=== PATIENT | female | born 1975 | race Caucasian/White ===

== ENCOUNTER → 2016-04-29 | Outpatient (CLI) | payer BC ==
[~2016-04-29] MED LIST: GLC500 PO; LVTUNK
--- NOTE | 2016-04-29 14:08 | MAMMOGRAPHY REPORT ---
BILATERAL DIGITAL SCREENING MAMMOGRAM TOMOSYNTHESIS WITH CAD: 04/29/2016 CLINICAL HISTORY: Routine screening. Patient has no complaints. TECHNIQUE: Breast tomosynthesis in addition to standard 2D mammography was performed. Current study was also evaluated with a Computer Aided Detection (CAD) system. COMPARISON: Comparison is made to exams dated: 04/27/2015 mammogram, 04/22/2014 mammogram, 02/18/2013 mammogram, and 01/04/2011 mammogram - [facility]. BREAST COMPOSITION: There are scattered areas of fibroglandular density in both breasts. FINDINGS: No suspicious masses, calcifications, or areas of architectural distortion are noted in e ither breast. There has been no significant interval change compared to prior exams. A coarse benig n rim calcification is seen within the right upper inner quadrant. IMPRESSION: ACR BI-RADS CATEGORY 2: BENIGN There is no mammographic evidence of malignancy. A 1 year screening mammogram is recommended. The p atient will receive written notification of the results. Approximately 10% of breast cancers are not detected with mammography. A negative mammographic repor t should not delay biopsy if a clinically suggestive mass is present. Marzena Vicente M.D. /:04/29/2016 09:13:06 Emissions Testing And Repair Technician: Jasmyne BURR(Erin)(Tre), [facility] letter sent: Normal 1/2 BI-RADS Code: ACR BI-RADS Category 2: Benign
== END | disposition home or self-care (01) ==
LOC: C.MAMM 08:08
PROVIDERS: ATTEND Family Medicine
DX: Z12.31 Encounter for screening mammogram for malignant neoplasm of breast (principal)

== ENCOUNTER → 2017-05-02 | Outpatient (CLI) | payer OTHER ==
--- NOTE | 2017-05-02 15:24 | MAMMOGRAPHY REPORT ---
BILATERAL DIGITAL SCREENING MAMMOGRAM TOMOSYNTHESIS WITH CAD: 05/02/2017 CLINICAL HISTORY: Routine screening. Patient has no complaints. TECHNIQUE: Breast tomosynthesis in addition to standard 2D mammography was performed. Current study was also evaluated with a Computer Aided Detection (CAD) system. COMPARISON: Comparison is made to exams dated: 04/29/2016 mammogram, 04/27/2015 mammogram, 04/22/2014 m ammogram, 02/18/2013 mammogram, and 01/04/2011 mammogram - [facility]. BREAST COMPOSITION: There are scattered areas of fibroglandular density in both breasts. FINDINGS: There is a benign rim calcification in the upper inner right breast. No suspicious mass, a rchitectural distortion or cluster of microcalcifications is seen. IMPRESSION: ACR BI-RADS CATEGORY 1: NEGATIVE There is no mammographic evidence of malignancy. A 1 year screening mammogram is recommended. The pa tient will receive written notification of the results. Approximately 10% of breast cancers are not detected with mammography. A negative mammographic report should not delay biopsy if a clinically suggestive mass is present. Caitie Saravia M.D. ay/:05/02/2017 09:07:12 Weights And Measures Inspector: Sally BURR(Erin)(M), [facility] letter sent: Normal 1/2 BI-RADS Code: ACR BI-RADS Category 1: Negative
== END | disposition home or self-care (01) ==
LOC: C.MAMM 08:11
PROVIDERS: ATTEND Family Medicine
DX: Z12.31 Encounter for screening mammogram for malignant neoplasm of breast (principal)

== ENCOUNTER 2023-08-20 18:47 | Observation (INO) ==
--- NOTE | 2023-08-20 19:30 | Emergency Department Note ---
Impression & Plan Pneumonia, Infection due to human metapneumovirus (hMPV), Rhinovirus infection, Fever, S/P appendectomy ED Provider Note NAME: CARMELO RAO AGE: 47 SEX: F : 1975 ARRIVES VIA: Walk-In INFORMANT: [Patient] ED PROVIDER(S): [Chas Hollingsworth MD] CHIEF COMPLAINT: Fever HISTORY OF PRESENT ILLNESS: The patient is a 47-year-old female who states that she had her appendix taken out outpatient on , 3 days ago. The patient had a fever the following day and this has persisted. Tonight, the temperature was 103. The patient did take some Motrin before arrival and her fever seems to be breaking. Patient has noticed some coughing, shortness of breath and wheezing. She has some minimal abdominal pain but she was told to expect this with the surgery. Her incisions seem to be healing well. No urinary complaints. She has not had any sick contacts. The patient states that she has not really moved her bowels since the surgery. She finally took some stool softeners today. The patient spoke with the on-call surgical service, she was referred to the ER. PMHx/PSHx/Social Hx: See Below PHYSICAL EXAM: GENERAL: Patient is in no acute distress. Face is flushed. HEENT: No acute trauma, normocephalic atraumatic, mucous membranes moist, no nasal congestion. NECK: No stridor, no adenopathy, no meningismus, trachea is midline. LUNGS: Wheezing bilaterally, few scattered crackles are heard. No respiratory distress. Dry cough noted. HEART: Without murmurs gallops or rubs, regular rate and rhythm. ABDOMEN: Soft, mildly tender in the area of her incisions, the incisions do not show erythema that would suggest infection. There is no peritonitis EXTREMITIES: No cyanosis, full range of motion of all the joints without pain or difficulty. NEUROLOGIC: Oriented x 3, no acute motor or sensory deficits, no focal weakness. SKIN: No jaundice, mild diaphoresis. DIFFERENTIAL DIAGNOSIS: Pneumonia, bronchitis, viral illness, aspiration, abscess, UTI, sepsis or bacteremia, among others. EMERGENCY DEPARTMENT PROCEDURES: MEDICAL DECISION MAKING: There is no leukocytosis or concerning anemia. There is a normal platelet count. No renal failure or significant electrolyte abnormality. Lactic acid level is not elevated making severe sepsis less likely. There is no concerning liver enzyme elevation. ECG shows a sinus rhythm, no ischemia. Cardiac enzyme testing x 1 is not consistent with acute cardiac injury. Respiratory bio fire shows human metapneumovirus as well as rhinovirus. Chest x-ray shows a infiltrate on the left. On exam, the patient was wheezing bilaterally with some scattered crackles. She was sweating as her fever appeared to be breaking. Oxygen saturation was low but she was not technically hypoxic. The patient was given IV saline, 500 cc. She was given IV cefepime as antibiotic coverage. She was given oral Tylenol and albuterol via MDI. I did call and speak with general surgery. A CT of the abdomen and pelvis was recommended, this was ordered and the results are pending. The patient's fever is likely from her viral infections coupled with what appears to be a left-sided pneumonia. Given the recent appendectomy, given her complaints and findings, I do think a hospital stay would be warranted. Certainly, given her recent appendectomy, aspiration is a consideration. I spoke with the patient and case management, the on-call hospitalist was consulted. Prior/Outside records/notes reviewed: Surgical note from 08/17/2023 discussing her outpatient appendectomy. ECG per my interpretation: Indication was shortness of breath. The ECG shows a normal sinus rhythm with a rate of 93. There is no acute ST elevation, no PVCs. The QTc is 412. Continuous Cardiac Monitoring per my interpretation: An order was placed for continuous cardiac monitoring. The monitor shows a rate of 96 with normal sinus rhythm. Imaging/x-ray results per my interpretation: Chest x-ray appears to show a mid lung infiltrate. No pneumothorax. Chronic Medical/Social conditions affecting care: Status post appendectomy 3 days ago. Care/Management discussed with: General surgery-Dr. Maynard. Case management, the on-call hospitalist. Level of care consideration(s): After review of the information above and other included data: --I believe the patient requires escalation of care to admission DISPOSITION: Admission with surgical consult Past Med/Surg History Problem List (Updated 08/20/23 @ 22:45 by Chas Hollingsworth MD) S/P appendectomy (Acute) Fever (Acute) Rhinovirus infection (Acute) Infection due to human metapneumovirus (hMPV) (Acute) Pneumonia (Acute) Mucocele of appendix History of back problems Arthritis Abnormal colonoscopy History of colon polyps Colon cancer screening Encounter for pre-operative examination Cardiomegaly (Acute) Dysmetabolic syndrome X (Acute) Fibrocystic breast disease (Acute) Overweight (Acute) Medical History Cardiomegaly Noted on imaging/CXR, Echo done 2019 had cardiomegaly listed as indication History of COVID-19 09/2021: moderate symptoms, resolved Heart murmur Echo 2019: No significant valvular pathology Prediabetes Hypothyroidism History of nephrolithiasis PCOS (polycystic ovarian syndrome) Surgical History (Updated 08/20/23 @ 22:45 by Chas Hollingsworth MD) History of laparoscopic appendectomy (08/17/23) Laparoscopic Appendectomy(Not Applicable) ; partial cecectomy- Akhil Salazar, Family history of reaction to anesthesia Mother: remote hx 47 years ago of awareness during c/s per patient Hx of colonoscopy 2022, 2023 History of urologic surgery Ureteral stent History of lithotripsy History of cervical corpectomy 08/2022 ([facility]) H/O thyroidectomy Family History Mother Diabetes Anemia Chronic kidney disease Breast cancer Hypertension Family history of colonic polyps Father Diabetes Stroke Grandfather Myocardial infarction Brother Renal cell carcinoma Denies family history of Ovarian cancer Prostate cancer Colorectal cancer Social History Smoking Status: Never smoker Second Hand Exposure: No; Do You Dip or Chew Tobacco: No; Hx Alcohol Use: Yes Alcohol type: beer, wine and hard liquor Alcohol Intake Frequency: 2-4 x/Month Hx Substance Use: No Preferred Language: [place] Communication Ability: Effective Visual Impairment: No Limitations Hearing Ability: Normal Radiology Interventional Physician Required: No Beliefs That Will Affect Care: None marital status: Current Living Situation: Spouse current occupational status: employed and unemployed 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 Children do You have: 0 Feels Safe at Home: Yes Childhood Exposure to Second-Hand Smoke: Yes Diet: regular caffeine: Yes during the past year weight has: increased > 10 lbs Dental Care, Regularly: Yes Physical Activity Frequency: Daily Seatbelt Use: always Sunscreen Use: Yes Assistive Devices: Glasses Allergies Allergies Allergy/AdvReac Type Severity Reaction Status Date / Time No Known Allergies Allergy Mild Verified 08/20/23 20:12 Home Meds Home Medications Medication Instructions Recorded Confirmed naproxen sodium 220 mg tablet 220 - 440 mg PO UD PRN Pain 06/04/18 08/20/23 (Aleve) multivitamin (Daily Multi-Vitamin 1 tab PO QAM 06/08/20 08/20/23 tablet) cholecalciferol (vitamin D3) 50 50 mcg PO QAM 05/04/23 08/20/23 mcg (2,000 unit) tablet (Vitamin D3) Previous Rx's Medication Instructions Recorded metformin 1,000 mg tablet 1,000 mg PO QAM #90 tabs 12/27/22 levothyroxine 150 mcg tablet 150 mcg PO QAM #90 tabs 06/28/23 (Synthroid) Results & Data (ED) Vital Signs Vital Signs - 24 hr 08/20/23 18:50 08/20/23 19:03 08/20/23 21:23 Temperature 36.9 C Temperature Source Temporal Artery Scan Pulse Rate 101 H 96 H Pulse Rate [Apical] 80 Pulse Rhythm Pulse Rhythm [Apical] Regular Pulse Strength [Apical] Normal Respiratory Rate 20 18 Respiratory Effort / Characteristics Non-Labored Non-Labored Spontaneous Respiratory Depth Normal Normal Respiratory Pattern Regular Blood Pressure 161/83 H Blood Pressure [Right Arm] 115/70 Blood Pressure Mean 109 Blood Pressure Mean [Right Arm] 85 Pulse Oximetry 92 94 Oxygen Delivery Method Room Air Room Air Sepsis Recent Fever Within 48 Hours No Sepsis New/Unexplained Change in Mental Status No Sepsis Action Taken by Nursing No Action Required 08/20/23 21:23 Temperature Temperature Source Pulse Rate 80 Pulse Rate [Apical] Pulse Rhythm Regular Pulse Rhythm [Apical] Pulse Strength [Apical] Respiratory Rate 18 Respiratory Effort / Characteristics Respiratory Depth Respiratory Pattern Blood Pressure Blood Pressure [Right Arm] Blood Pressure Mean Blood Pressure Mean [Right Arm] Pulse Oximetry 94 Oxygen Delivery Method Room Air Sepsis Recent Fever Within 48 Hours Sepsis New/Unexplained Change in Mental Status Sepsis Action Taken by Usp Medications Current Medication List: was personally reviewed by me Laboratory Data Attestation: I reviewed the patient's lab results. 08/20/23 19:50 08/20/23 19:50 Lab Results 08/20/23 08/20/23 08/20/23 Range/Units 19:02 19:50 20:11 WBC 6.01 (4.8-10.8) K/ul RBC 4.32 (4.20-5.40) M/uL Hgb 13.2 (12.0-16.0) g/dl Hct 39.4 (37.0-47.0) % MCV 91.2 (80.0-100.0) fL MCH 30.6 (25.0-34.0) pg MCHC 33.5 (32.0-36.0) g/dL RDW Std Deviation 47.1 H (36.4-46.3) fL RDW Coeff of Colten 14.1 (11.5-14.5) % Plt Count 273 (130-400) K/uL MPV 10.3 (9.4-12.4) fL Immature Gran % (Auto) 0.3 % Neut % (Auto) 71.1 % Lymph % (Auto) 17.6 % Cameron % (Auto) 9.3 % Eos % (Auto) 1.0 % Baso % (Auto) 0.7 % Neut # (Auto) 4.27 (1.40-6.50) K/uL Lymph # (Auto) 1.06 L (1.20-3.40) K/uL Cameron # (Auto) 0.56 (0.11-0.59) K/uL Eos # (Auto) 0.06 (0.00-0.50) K/uL Baso # (Auto) 0.04 (0.00-0.20) K/uL Immature Gran # (Auto) 0.02 (0.01-0.20) K/uL Sodium 136 (136-145) mmol/L Potassium 3.8 (3.5-5.1) mmol/L Chloride 102 (98-107) mmol/L Carbon Dioxide 28 (21-32) mmol/L Anion Gap 6 (3-11) BUN 11 (6-23) mg/dl Creatinine 0.79 (0.6-1.2) mg/dl Est Cr Clr Drug Dosing 112.3 ml/min Est GFR ( Amer) 103.3 ml/min Est GFR (Non-Af Amer) 89.1 ml/min BUN/Creatinine Ratio 13.9 (10-20) Glucose 126 H (70-99(Fasting)) mg/dl Lactate 1.1 (0.4-2.0) mmol/L Calcium 8.8 (8.6-10.3) mg/dl Total Bilirubin 0.4 (0.2-1.0) mg/dl AST 17 (13-39) U/L ALT 11 (7-52) U/L Alkaline Phosphatase 49 (34-104) U/L Troponin I High Sens 5.7 (0-14) pg/ml Total Protein 7.2 (6.0-8.3) gm/dl Albumin 4.0 (3.4-5.0) gm/dl Globulin 3.2 (2.5-4.0) gm/dl Albumin/Globulin Ratio 1.3 (0.9-2) Adenovirus (PCR) Not Detected (NotDetected) B. pertussis DNA (PCR) Not Detected (NotDetected) B.parapertussis DNA PCR Not Detected (NotDetected) C. pneumoniae DNA (PCR) Not Detected (NotDetected) Coronavirus OC43 (PCR) Not Detected (NotDetected) Coronavirus HKU1 (PCR) Not Detected (NotDetected) Coronavirus 229E (PCR) Not Detected (NotDetected) SARS-CoV-2 (PCR) Not Detected (NotDetected) Coronavirus NL63 (PCR) Not Detected (NotDetected) Human Metapneumovir PCR DETECTED A (NotDetected) Influenza Type A (PCR) Not Detected (NotDetected) Influenza Type B (PCR) Not Detected (NotDetected) M. pneumoniae (PCR) Not Detected (NotDetected) Parainfluenza 1 (PCR) Not Detected (NotDetected) Parainfluenza 2 (PCR) Not Detected (NotDetected) Parainfluenza 3 (PCR) Not Detected (NotDetected) Parainfluenza 4 (PCR) Not Detected (NotDetected) RSV (PCR) Not Detected (NotDetected) Entero/Rhino (PCR) DETECTED A (NotDetected) Administered Medications Discontinued Medications Acetaminophen (Acetaminophen 500 Mg Tab) 1,000 mg PO NOW STA Stop: 08/20/23 19:15 Last Admin: 08/20/23 19:55 Dose: 1,000 mg Documented By: SNS Albuterol (Albut/Ipratrop 3mg/0.5mg Neb 3 Ml Vial) 3 ml NEB NOW STA; Protocol Stop: 08/20/23 19:15 Last Admin: 08/20/23 19:56 Dose: 3 ml Documented By: LARISSA Sodium Chloride (Nss) 500 mls @ 999 mls/hr IV .Q31M DALTON Stop: 08/20/23 19:30 Last Infusion: 08/20/23 20:30 Dose: Infused Documented By: Admin: 08/20/23 19:57 Dose: 999 mls/hr Documented By: LARISSA Sodium Chloride (Nss) 500 mls @ 999 mls/hr IV .Q31M ONE Stop: 08/20/23 19:44 Last Admin: 08/20/23 20:31 Dose: Not Given Documented By: LARISSA Cefepime HCl (Maxipime) 2,000 mg in 20 mls @ 5 mls/min IV NOW STA; Protocol Stop: 08/20/23 19:26 Last Admin: 08/20/23 19:56 Dose: 5 mls/min Documented By: LARISSA Ioversol (Optiray 320 100ml) 94 ml IV ONCE ONE Stop: 08/20/23 21:03 Last Admin: 08/20/23 21:02 Dose: 94 ml Documented By: EDK Discharge Plan Visit Data Chief Complaint: Fever Stated Complaint: POST OP APPENDECTOMY, FEVER, SOB, COUGH ED Provider: Chas Hollingsworth Discharge Problem: Pneumonia, Infection due to human metapneumovirus (hMPV), Rhinovirus infection, Fever, S/P appendectomy Patient Disposition: Admitted As Inpatient Condition: Fair Forms Stand Alone Forms: [facility] Prescriptions Prescriptions: No Action metformin 1,000 mg tablet 1,000 mg PO QAM Qty: 90 3RF levothyroxine [Synthroid] 150 mcg tablet 150 mcg PO QAM Qty: 90 1RF multivitamin [Daily Multi-Vitamin] Tablet 1 tab PO QAM naproxen sodium [Aleve] 220 mg Tablet 220 - 440 mg PO UD PRN (Reason: Pain) cholecalciferol (vitamin D3) [Vitamin D3] 50 mcg (2,000 unit) Tablet 50 mcg PO QAM Referrals Referrals: Alicia Rincon MD [Primary Care Provider] - Discharge Problem: Pneumonia Qualifiers: Pneumonia type: due to unspecified organism Laterality: left Lung location: u nspecified part of lung Qualified Code(s): J18.9 - Pneumonia, unspecified organism Fever Qualifiers: Fever type: unspecified Qualified Code(s): R50.9 - Fever, unspecified
[2023-08-20] MEDS: ACETAMINOPHEN 500 MG TAB PO STA (19:55)
[2023-08-20] MEDS: ALBUT/IPRATROP 3MG/0.5MG NEB 3 ML VIAL NEB STA (19:56)
[2023-08-20] MEDS: CEFEPIME 2,000 MG/20 ML VIAL IV STA (19:56)
[2023-08-20] MEDS: SODIUM CHLORIDE 0.9% 500 ML IV SCH (19:57)
[2023-08-20 20:03] LABS: Adenovirus PCR Not Detected (NotDetected); Bordetella parapertussis PCR Not Detected (NotDetected); Bordetella pertussis PCR Not Detected (NotDetected); Chlamydia pneumoniae PCR Not Detected (NotDetected); Coronavirus 229E PCR Not Detected (NotDetected); Coronavirus CoV-2 (COVID19)PCR Not Detected (NotDetected); Coronavirus HKU1 PCR Not Detected (NotDetected); Coronavirus NL63 PCR Not Detected (NotDetected); Coronavirus OC43PCR Not Detected (NotDetected); Human Metapneumovirus PCR DETECTED (NotDetected); Influenza A PCR Not Detected (NotDetected); Influenza B PCR Not Detected (NotDetected); Mycoplasma pneumoniae PCR Not Detected (NotDetected); Parainfluenza Virus 1 PCR Not Detected (NotDetected); Parainfluenza Virus 2 PCR Not Detected (NotDetected); Parainfluenza Virus 3 PCR Not Detected (NotDetected); Parainfluenza Virus 4 PCR Not Detected (NotDetected); Respiratory Syncytial VirusPCR Not Detected (NotDetected); Rhinovirus/Enterovirus PCR DETECTED (NotDetected)
[2023-08-20 20:12] LABS: Basophils # (auto) 0.04 K/uL (0.00-0.20); Basophils % (auto) 0.7 %; Eosinophils # (auto) 0.06 K/uL (0.00-0.50); Hematocrit (blood only) 39.4 % (37.0-47.0); Hemoglobin 13.2 g/dl (12.0-16.0); Immature Granulocytes # (auto) 0.02 K/uL (0.01-0.20); Immature Granulocytes % (auto) 0.3 %; Lymphocytes # (auto) 1.06 K/uL (1.20-3.40); Lymphocytes % (auto) 17.6 %; Mean Corpuscular Hemoglobin 30.6 pg (25.0-34.0); Mean Corpuscular Hgb Conc 33.5 g/dL (32.0-36.0); Mean Corpuscular Volume 91.2 fL (80.0-100.0); Mean Platelet Volume 10.3 fL (9.4-12.4); Monocytes # (auto) 0.56 K/uL (0.11-0.59); Monocytes % (auto) 9.3 %; Neutrophils # (auto) 4.27 K/uL (1.40-6.50); Neutrophils % (auto) 71.1 %; Platelet Count 273 K/uL (130-400); RDW Coefficient of Variation 14.1 % (11.5-14.5); RDW Standard Deviation 47.1 fL (36.4-46.3); Red Blood Count 4.32 M/uL (4.20-5.40); White Blood Count 6.01 K/ul (4.8-10.8)
[2023-08-20 20:29] LABS: Albumin Globulin Ratio 1.3 (0.9-2); BUN Creatinine Ratio 13.9 (10-20); Bilirubin,Total 0.4 mg/dl (0.2-1.0); Calcium 8.8 mg/dl (8.6-10.3); Creatinine Clr Calc Pharmacy 112.3 ml/min; Est GFR (African American) 103.3 ml/min; Est GFR (Non-African American) 89.1 ml/min; Globulin 3.2 gm/dl (2.5-4.0); Potassium 3.8 mmol/L (3.5-5.1); Total Protein 7.2 gm/dl (6.0-8.3)
[2023-08-20] MEDS: SODIUM CHLORIDE 0.9% 500 ML IV ONE (20:31)
[2023-08-20 20:35] LABS: Troponin I High Sensitivity 5.7 pg/ml (0-14)
[2023-08-20] MEDS: OPTIRAY 320 100ml IV ONE (21:02)
--- NOTE | 2023-08-20 23:28 | History & Physical Report ---
Date of Service August 20, 2023 Assessment & Plan (1) Pneumonia: Plan: Patient with SOB, cough, fevers. BioFire positive for hMPV and rhinovirus. CXR with signs of pneumonia - formal read pending. With recent appendectomy patient at higher risk for atypical organisms. Will cover with cefepime and flagyl. MRSA nares ordered. Blood cultures pending. Patient does not meet SIRs critera. Given 1L NS in the ED. Encourage PO intake. CURB-65 Low Risk. PSI/PORT Score - 37 points, Risk Clas I, o.1% mortality. f/u blood cultures cefepime and flagyl while inpatient IC, flutter valve, duonebs PRN tylenol PRN for fever (2) S/P appendectomy: Plan: Done 08/[address] A&P ordered. Read pending. Minimal abdominal pain. Continue to monitor. (3) Rhinovirus infection: (4) Infection due to human metapneumovirus (hMPV): (5) Fever: (6) Hypothyroidism: Plan: Continue home levothyroxine. (7) Cardiomegaly: Plan: Noted on prior imaging - sounds like an AP film. Per chart review there was an ECHO done in 2019 for cardiomegaly. ECHO reportedly was normal. (8) Overweight: Plan: Patient reports being a shallow breather. She may have some component of sleep apnea or obesity hypoventilation syndrome. Consider outpatient work up with sleep study. continue home metformin Plan Code status: full DVT ppx: SCDs, low risk, ambulation FENGI: regular diet, s/p 1 L NS Dispo: MedSurg with Tele History of Present Illness Primary Care Provider: Alicia Rincon MD 47 y/o female presents with cough, fever, and shortness of breath of 3 days duration. Patient underwent appendectomy with Dr. Salazar 08/16. Fever started 08/17. Has been slowly increasing from 101 initially to 103. Refractory to medications. Prompting ED visit. Patient positive for entero/rhinovirus and human metapneumovirus. CXR consistent with pneumonia. Started on cefepime. Did have some improvement with duoneb in the ED. Patient with cough, wheezing, and shortness of breath. Minimal abdominal pain. No nausea or vomiting. No urinary symptoms. CXR with signs of pneumonia. CT A&P pending read. Patient satting 90- 95 on RA. No tachycardia, tachypnea, hypotension, or documented fevers in the ED. Hospitalist service consulted for admission. Allergies Allergy/AdvReac Type Severity Reaction Status Date / Time No Known Allergies Allergy Mild Verified 08/20/23 20:12 Home Medications Medication Instructions Recorded Confirmed Type naproxen sodium 220 mg tablet 220 - 440 mg PO UD PRN Pain 06/04/18 08/20/23 History (Aleve) multivitamin (Daily Multi-Vitamin 1 tab PO QAM 06/08/20 08/20/23 History tablet) metformin 1,000 mg tablet 1,000 mg PO QAM #90 tabs 12/27/22 08/20/23 Rx cholecalciferol (vitamin D3) 50 50 mcg PO QAM 05/04/23 08/20/23 History mcg (2,000 unit) tablet (Vitamin D3) levothyroxine 150 mcg tablet 150 mcg PO QAM #90 tabs 06/28/23 08/20/23 Rx (Synthroid) Past Med/Surg History Problem List (Updated 08/20/23 @ 22:45 by Chas Hollingsworth MD) S/P appendectomy (Acute) Fever (Acute) Rhinovirus infection (Acute) Infection due to human metapneumovirus (hMPV) (Acute) Pneumonia (Acute) Mucocele of appendix History of back problems Arthritis Abnormal colonoscopy History of colon polyps Colon cancer screening Encounter for pre-operative examination Cardiomegaly (Acute) Dysmetabolic syndrome X (Acute) Fibrocystic breast disease (Acute) Overweight (Acute) Medical History Cardiomegaly Noted on imaging/CXR, Echo done 2019 had cardiomegaly listed as indication History of COVID-19 09/2021: moderate symptoms, resolved Heart murmur Echo 2019: No significant valvular pathology Prediabetes Hypothyroidism History of nephrolithiasis PCOS (polycystic ovarian syndrome) Surgical History (Updated 08/20/23 @ 22:45 by Chas Hollingsworth MD) History of laparoscopic appendectomy (08/17/23) Laparoscopic Appendectomy(Not Applicable) ; partial cecectomy- Akhil Salazar DO Family history of reaction to anesthesia Mother: remote hx 47 years ago of awareness during c/s per patient Hx of colonoscopy 2022, 2023 History of urologic surgery Ureteral stent History of lithotripsy History of cervical corpectomy 08/2022 ([facility] [address]) H/O thyroidectomy Family History Mother Diabetes Anemia Chronic kidney disease Breast cancer Hypertension Family history of colonic polyps Father Diabetes Stroke Grandfather Myocardial infarction Brother Renal cell carcinoma Denies family history of Ovarian cancer Prostate cancer Colorectal cancer Social History Smoking Status: Never smoker Second Hand Exposure: No; Do You Dip or Chew Tobacco: No; Hx Alcohol Use: No Hx Substance Use: No Preferred Language: Pashto Communication Ability: Effective Visual Impairment: No Limitations Hearing Ability: Normal Manager Qa Required: No Beliefs That Will Affect Care: None marital status: Current Living Situation: Spouse current occupational status: employed and unemployed 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 Children do You have: 0 Feels Safe at Home: Yes Childhood Exposure to Second-Hand Smoke: Yes Diet: regular caffeine: Yes during the past year weight has: increased > 10 lbs Dental Care, Regularly: Yes Physical Activity Frequency: Daily Seatbelt Use: always Sunscreen Use: Yes Assistive Devices: Glasses Review of Systems 2 Review of Systems: See HPI Physical Exam 2 Physical Exam: Gen: non-toxic appearing patient in NAD HEENT: AT NC MMM Resp: CTAB mild wheezing throughout no increased work of breathing CV: RRR no m/r/g clinically well perfused Abd: +BS, soft, non-tender, non-distended MSK: no obvious deformities Skin: no rashes or bruising Neuro: alert and oriented Psych: appropriate mood and affect Results & Data Results & Data Vital Signs (Past 12 Hours) Vital Signs Temp Pulse Pulse Resp BP BP Pulse Ox 08/20/23 23:07 73 08/20/23 21:23 80 18 94 08/20/23 21:23 80 18 115/70 94 08/20/23 19:03 96 H 08/20/23 18:50 36.9 C 101 H 20 161/83 H 92 O2 Del Method 08/20/23 23:07 08/20/23 21:23 Room Air 08/20/23 21:23 Room Air 08/20/23 19:03 08/20/23 18:50 Room Air Laboratory Results 08/20/23 19:50 08/20/23 19:50 Code Status & VTE Plan VTE Prophylaxis Plan VTE Prophylaxis will be ordered: Yes Supervising Physician Co-Signing Physician Notes Patient seen and examined, chart reviewed, case discussed with Dr. Singh and I agree with the assessment and plan as above. In brief, patient is a 47yo female s/p appendectomy on 08/17/[address] Salazar. Patient developed a fever following her operation. Minimal abdominal pain. Surgical sites with no redness/drainage or dehiscence On exam she is resting comfortably, NAD Skin - surgical sites well approximated with no evidence of infection HEENT - MMM, Neck supple Heart - +S1/S2, regular, no m/r/g Lungs - diffuse end-expiratory wheezing, crackles in bilateral bases Abd - +BS, soft, NT/ND Ext - warm, well perfused Labs and images reviewed Assessment/Plan -suspect viral PNA secondary to human metapneumovirus + enterovirus -Observation to medical with telemetry -Empiric antibiotics - Cefepime and Flagyl for now. MRSA nares NEGATIVE -Albuterol PRN -IVF x 2L -Remainder as above Resident Activity Tracking Resident Involvement: Resident Care Provided Care Provided: Adult Hospital Medicine (1) Pneumonia Laterality: left Lung location: unspecified part of lung Pneumonia type: due to unspecified organism Qualified Code(s): J18.9 - Pneumonia, unspecified organism (5) Fever Fever type: unspecified Qualified Code(s): R50.9 - Fever, unspecified
[2023-08-20] MEDS ORDERED: ALBUT/IPRATROP 3MG/0.5MG NEB 3 ML VIAL NEB PRN (23:57)
--- NOTE | 2023-08-21 00:33 | CT Scan Report ---
Exam(s): CT ABDOMEN + PELVIS With Contrast IV Amt: OPTIRAY 320 94ML EXAM: CT Abdomen and Pelvis With Intravenous Contrast CLINICAL HISTORY: Reason for exam: fever, s/p appy. TECHNIQUE: Axial computed tomography images of the abdomen and pelvis with intravenous contrast. CTDI is 28.14 mGy and DLP is 1401.32 mGy-cm. Automated exposure control was utilized for the study. A dose lowering technique was utilized adhering to the principles of ALARA. CONTRAST: Patient received OPTIRAY 320 94ML of IV contrast COMPARISON: CT abdomen pelvis May 25, 2023. FINDINGS: Lung bases: Unremarkable. No mass. No consolidation. ABDOMEN: Liver: Hepatic steatosis. Gallbladder and bile ducts: Contracted gallbladder. No calcified stones. No ductal dilation. Pancreas: Unremarkable. No mass. No ductal dilation. Spleen: Unremarkable. No splenomegaly. Adrenals: Unremarkable. No mass. Kidneys and ureters: Unremarkable. No solid mass. No hydronephrosis. Stomach and bowel: Mild fecal retention, correlate for constipation. No obstruction. No mucosal thickening. PELVIS: Appendix: Appendectomy suture line identified. Mild residual fat stranding from previous appendicitis. No fluid collection or abscess. Bladder: Unremarkable. No mass. Reproductive: Unremarkable as visualized. ABDOMEN and PELVIS: Intraperitoneal space: Unremarkable. No free air. No significant fluid collection. Bones/joints: No acute fracture. No dislocation. Soft tissues: Mild skin thickening and subcutaneous edema of the abdominal pannus, with small focus of subcutaneous air. Correlate for cellulitis. Vasculature: Unremarkable. No abdominal aortic aneurysm. Lymph nodes: Unremarkable. No enlarged lymph nodes. IMPRESSION: 1. Appendectomy suture line identified. Mild residual fat stranding from previous appendicitis. No fluid collection or abscess. 2. Mild skin thickening and subcutaneous edema of the abdominal pannus, with small focus of subcutaneous air (likely postoperative). Correlate for cellulitis. 3. Mild fecal retention, correlate for constipation. Electronically signed by: Edwardo Murray MD 08/21/23 00:32 AM
[2023-08-21] MEDS: LACTATED RINGER'S 1,000 ML IV SCH (00:47)
[2023-08-21] MEDS: metroNIDAZOLE 500 MG/100 ML BAG IV SCH (00:47)
[2023-08-21] MEDS: ACETAMINOPHEN 325 MG TAB PO PRN (00:47)
[2023-08-21 01:06] LABS: Appearance Urine Clear (Clear); Bacteria Urine Automated None Seen (None Seen); Bilirubin Urine Negative (Negative); Blood Urine Negative (Negative); Cast Urine Automated 0-2 /lpf (0-2); Color Urine Yellow; Epithelial Cell Urine Auto 0-2 /hpf (0-2); Glucose Urine UA Negative (Negative); Ketones Urine Trace (Negative); Leukocyte Esterase Urine Negative (Negative); Nitrite Urine Negative (Negative); Protein Urine Trace (Negative); RBC Urine Automated 0-2 /hpf (0-2); Specific Gravity Urine > 1.045 (1.000-1.030); Urobilinogen Urine Negative (Negative); WBC Urine Automated 0-5 /hpf (0-5); pH Urine 5.5 (4.5-7.5)
[2023-08-21] MEDS ORDERED: GLUCOSE 40% GEL 15 GM TUBE PO PRN (01:30)
[2023-08-21] MEDS ORDERED: GLUCOSE 10 TAB/TUBE PO PRN (01:30)
[2023-08-21] MEDS ORDERED: DEXTROSE 50% 50 ML SYRINGE IV PRN (01:30)
[2023-08-21] MEDS ORDERED: GLUCAGON FOR INJ 1 MG VIAL IM PRN (01:30)
[2023-08-21] MEDS ORDERED: CARBOHYDRATES FOR HYPOGLYCEMIA PO PRN (01:30)
[2023-08-21] MEDS: POLYETHYLENE (MIRALAX) 17 GM PACK PO STA (01:32)
--- NOTE | 2023-08-21 02:48 | Billing Data ---
Date of Service August 20, 2023 Coding Level of Care Code 72891 INT INP/OBS CARE
[2023-08-21] MEDS: BENZONATATE 100 MG CAPSULE PO PRN (04:55)
[2023-08-21] MEDS: guaiFENesin/DEXTROM SYRUP 100MG/10MG 5ML UDC PO PRN (04:55)
[2023-08-21] MEDS: hydrALAZINE 10 MG TAB PO STA (04:56)
[2023-08-21] MEDS: LEVOTHYROXINE SODIUM 150 MCG TABLET PO SCH (06:30)
[2023-08-21] MEDS: CEFEPIME 2,000 MG in SYRINGE 0 ML IV SCH (06:30)
--- NOTE | 2023-08-21 07:05 | Hospitalist Progress Note ---
Date of Service August 21, 2023 Assessment & Plan (1) Pneumonia: Plan: (2) Rhinovirus infection: (3) Infection due to human metapneumovirus (hMPV): (4) Fever: (5) S/P appendectomy: Plan: D. (6) Hypothyroidism: Plan: (7) Cardiomegaly: (8) Overweight: Plan Patient is a 47 yo F w/ a PMHx of cardiomegaly, type II obesity, fibrocystic breast disease who presented to the ED 3 days s/p appendectomy (on August 17, 2023) for dyspnea, wheezing, and subsequently found to have a CXR concerning for pnemonia along with positive rhino/entero virus and hMPV infection. 1) Pneumonia/ Rhino/entero virus +/ hMPV +/ Fever - Patient with SOB, cough, fevers. BioFire positive for hMPV and rhinovirus. - CXR with signs of pneumonia/left lower lung opacity (with recent appendectomy patient at higher risk for atypical organisms) - Cefepime, IV, 2g, q8h and Flagyl, 500 mg, IV, q8h - MRSA nares negative. Blood cultures pending. Patient does not meet SIRS critera. Given 1L NS in the ED. Encourage PO intake. - CURB-65 Low Risk. PSI/PORT Score - 37 points, Risk Class I, 0.1% mortality. - IC, flutter valve, duonebs PRN; tylenol PRN for fever 2) S/P Appendectomy Done 08/[address] Salazar. Minimal abdominal pain. Continue to monitor. - CT-AP notable only for mild fecal retention, mild skin thickening and subcutaneous edema of abdominal pannus 3) Hypothyroidism - Continue home levothyroxine. 4) Cardiomegaly Noted on prior imaging - sounds like an AP film. Per chart review there was an ECHO done in 2019 for cardiomegaly. ECHO reportedly was normal. 5) Overweight - Patient reports being a shallow breather. She may have some component of sleep apnea or obesity hypoventilation syndrome. - -- - - Consider outpatient work up with sleep study. - continue home metformin Code status: Full DVT ppx: SCDs (low risk, ambulation) FENGI: regular diet, s/p 1 L NS Disposition: [facility]- Tele Admission and Anticipated Discharge Date Admission Date: August 20, 2023 Supervising Physician Co-Signing Physician Notes ATTESTATION I also saw the patient and confirmed sneed portions of the history and exam. I agree with the impression and plan in the resident documentation, and as summa rized below. upon examination this morning, she remains in the emergency department awaiting a bed. She tells us that she feels better compared to yesterday. She has no new complaints. She denies any respiratory difficulty; denies chest pain. She has not yet had a bowel movement since the appendectomy. EXAM 166/92, 92, 20, 36.9, 93% on room air pleasant and alert. No distress appreciated. Heart regular rate and rhythm; lungs are clear to my auscultation (+) bowel sounds; non tender abdomen DATA Labs CBC shows no leukocytosis. BMP unremarkable except for mildly elevated nonfasting glucose Micro Blood cultures from 08/20/2023 are pending IMPRESSION & PLAN Suspect viral PNA secondary to human metapneumovirus + enterovirus, clinically improving Continue empiric antibiotics pending culture results Bowel regimen Possible d/c tomorrow if continues to improve and cultures negative Subjective Patient is a 47 yo F w/ a PMHx of cardiomegaly, type II obesity, fibrocystic breast disease who presented to the ED 3 days s/p appendectomy (on August 17, 2023) for dyspnea, wheezing, and subsequently found to have a CXR concerning for pnemonia along with positive rhino/entero virus and hMPV infection. Patient feels better this morning: decreased coughing frequency and wheezing, no fever, descreased dyspnea. Patient did start to have hypertension but w/out any concerning associated symptoms such as THAO, vision changes, chest pain, numbness or tingling in the extremities. Review of Systems Constitutional: no fever, no chills and no body aches Eyes: not seeing flashes, no spots in vision and no worsening vision Ear, Nose, Mouth, Throat: no nasal congestion, no post nasal drip and no sore throat Respiratory: + cough, + dyspnea on exertion and + whe ezing (decreased from day prior); no hemoptysis and no pain with cough Cardiovascular: no chest pain, no palpitations and no lightheadedness Gastrointestinal: no abdominal pain Genitourinary: + urinary frequency (only due to receivi ng IV fluids); no dysuria Neurologic: + tingling (baseline from cervical disc compression) and + numbness Physical Exam Constitutional: WD/WN, vitals as above Results & Data Results & Data Vital Signs (Past 12 Hours) Vital Signs Pulse Pulse Resp BP Pulse Ox Pulse Ox O2 Del Method 08/21/23 06:09 82 20 174/83 H 92 Room Air 08/21/23 04:57 86 22 181/74 H 96 Room Air 08/21/23 04:27 79 18 194/98 H 91 Room Air 08/21/23 03:12 78 18 170/88 H 92 Room Air 08/21/23 01:00 Room Air 08/21/23 01:00 72 18 153/74 H 93 Room Air 08/21/23 01:00 93 08/20/23 23:07 73 08/20/23 21:23 80 18 94 Room Air 08/20/23 21:23 80 18 115/70 94 Room Air O2 Del Method 08/21/23 06:09 08/21/23 04:57 08/21/23 04:27 08/21/23 03:12 08/21/23 01:00 08/21/23 01:00 08/21/23 01:00 Room Air 08/20/23 23:07 08/20/23 21:23 08/20/23 21:23 Resident Activity Tracking Resident Involvement: Resident Care Provided Care Provided: Adult Hospital Medicine (1) Pneumonia Laterality: left Lung location: unspecified part of lung Pneumonia type: due to unspecified organism Qualified Code(s): J18.9 - Pneumonia, unspecified organism (4) Fever Fever type: unspecified Qualified Code(s): R50.9 - Fever, unspecified
[2023-08-21 07:11] LABS: BUN Creatinine Ratio 13.4 (10-20); Calcium 8.2 mg/dl (8.6-10.3); Creatinine Clr Calc Pharmacy 132.4 ml/min; Est GFR (African American) 121.3 ml/min; Est GFR (Non-African American) 104.7 ml/min
--- NOTE | 2023-08-21 07:28 | XRay Report ---
XR chest 1V portable CLINICAL HISTORY: weakness TECHNIQUE: Single frontal radiograph of the chest was obtained. Comparison: Comparison is made to chest radiograph 08/06/2021 FINDINGS: No lines and tubes are seen. The cardiomediastinal silhouette is normal. Left lower lung airspace opa city is seen. No evidence of pleural effusion or pneumothorax. IMPRESSION: Left lower lung airspace opacity. This may represent atelectasis, pneumonia, and/or aspiration. ACT 112: Negative or not required by law. Electronically signed by: Froylan Melgoza M.D. 08/21/2023 7:26 AM
[2023-08-21] MEDS ORDERED: metFORMIN HCL 500 MG TAB PO SCH (09:00)
[2023-08-21] MEDS: INSULIN ASPART PER UNIT CHARGE SC SCH (09:54)
--- NOTE | 2023-08-21 10:57 | Electrocardiogram Report ---
Test Reason : Blood Pressure : / mmHG Vent. Rate : 093 BPM Atrial Rate : 093 BPM P-R Int : 138 ms QRS Dur : 084 ms QT Int : 332 ms P-R-T Axes : 032 024 027 degrees QTc Int : 412 ms Normal sinus rhythm Possible Left atrial enlargement Borderline ECG When compared with ECG of 17-AUG-2023 07:47, No significant change was found Confirmed by Chon Mancini ([id number]) on 08/21/2023 10:56:29 AM Referred By: REFERRED SELF Confirmed By:Hay Mancini
[2023-08-21] MEDS ORDERED: ZOLPIDEM TARTRATE 5 MG TAB PO PRN (12:30)
--- NOTE | 2023-08-22 07:00 | Discharge Summary ---
Date of Service August 22, 2023 Admission HPI Per Admitting Provider 47 y/o female presents with cough, fever, and shortness of breath of 3 days duration. Patient underwent appendectomy with Dr. Salazar 08/16. Fever started 08/17. Has been slowly increasing from 101 initially to 103. Refractory to medications. Prompting ED visit. Patient positive for entero/rhinovirus and human metapneumovirus. CXR consistent with pneumonia. Started on cefepime. Did have some improvement with duoneb in the ED. Patient with cough, wheezing, and shortness of breath. Minimal abdominal pain. No nausea or vomiting. No urinary symptoms. CXR with signs of pneumonia. CT A&P pending read. Patient satting 90- 95 on RA. No tachycardia, tachypnea, hypotension, or documented fevers in the ED. Hospitalist service consulted for admission. Admission Exam Per Admitting Provider Gen: non-toxic appearing patient in NAD HEENT: AT NC MMM Resp: CTAB mild wheezing throughout no increased work of breathing CV: RRR no m/r/g clinically well perfused Abd: +BS, soft, non-tender, non-distended MSK: no obvious deformities Skin: no rashes or bruising Neuro: alert and oriented Psych: appropriate mood and affect Principal Diagnosis Pneumonia Viral respiratory infection Discharge Exam Constitutional WD/WN, vitals as above Respiratory normal respiratory effort, + cough and able to speak in complete sentences; not tachypneic Auscultation: lungs clear to auscultation bilaterally; no crackles and no rales Cardiovascular RRR, no murmur, no edema Gastrointestinal (Abdomen) normal bowel sounds, soft, nontender, no hepatosplenomegaly Psychiatric A+Ox3, euthymic affect Discharge Data Allergies Allergy/AdvReac Type Severity Reaction Status Date / Time No Known Allergies Allergy Mild Verified 08/20/23 20:12 Consultations 08/20/23 21:46 ED Decision to Admit Stat Ordered Studies 08/20/23 19:23 CT abd pelvis IV con only Stat Hospital Course (1) Pneumonia: (2) Rhinovirus infection: (3) Infection due to human metapneumovirus (hMPV): (4) Fever: (5) S/P appendectomy: (6) Hypothyroidism: (7) Cardiomegaly: (8) Overweight: Plan Patient is a 47 yo F w/ a PMHx of cardiomegaly, type II obesity, fibrocystic breast disease who presented to the ED 3 days s/p appendectomy (on August 17, 2023) for dyspnea, wheezing, and subsequently found to have a CXR concerning for pnemonia along with positive rhino/entero virus and hMPV infection. 1) Pneumonia/ Rhino/entero virus +/ hMPV +/ Fever - Patient with SOB, cough, fevers. BioFire positive for hMPV and rhinovirus. - CXR with signs of pneumonia/left lower lung opacity (with recent appendectomy patient at higher risk for atypical organisms) - patient w/ fever on 08/22/23, 38.4 C, and has received Tylenol, 650 mg x 3 - Cefepime, IV, 2g, q8h and Flagyl, 500 mg, IV, q8h during inpatient stay - MRSA nares negative. Blood cultures pending. Patient did not meet SIRS criteria - CURB-65 Low Risk. PSI/PORT Score - 37 points, Risk Class I, 0.1% mortality. - IC, flutter valve, duonebs PRN; tylenol PRN for fever - Patient discharged on Augementin, (amoxicillin-pot clavulanate:875-125 mg)/1 tab, BID, for 8 days 2) S/P Appendectomy Done 08/[address] Salazar. Minimal abdominal pain. Continue to monitor. - CT-AP notable only for mild fecal retention, mild skin thickening and subcutaneous edema of abdominal pannus - F/U w/ Dr. Salazar for scheduled outpt appt 3) Hypothyroidism - Continue home levothyroxine, 150 mcg, PO, AM daily 4) Cardiomegaly - Noted on prior imaging - sounds like an AP film. Per chart review there was an ECHO done in 2019 for cardiomegaly. - ECHO reportedly was normal. 5) Overweight/Dysmetabolic syndrome - Patient reports being a shallow breather. She may have some component of sleep apnea or obesity hypoventilation syndrome. - -- - - Consider outpatient work up with sleep study. - continue home metformin, 1000 mg, PO, qAM - patient w/ intermittent high BP readings during stay in context of pneumonia (also a component of dysmetabolic syndrome); F/U w/ PCP after discharge to determine whether anti-hypertensive meds needed - patient w/ elevated fasting glucose levels during inpatient stay (126), F/U w/ PCP as outpt about progression to T2DM Total Time Total Time Spent Total Time Spent (In Minutes): 30 minutes Discharge Plan Discharge Items Patient Disposition: Home - Self-Care Reason For Visit: PNEUMONIA Discharge Diagnosis: Pneumonia s/p appendectomy Condition on Discharge: Fair Activity: Resume your previous activity Non-emergency contact: Primary Care Provider Call non-emergency contact if: you have any medication questions, your symptoms worsen and your temperature is above 101.5 Follow-up/Referrals: Alicia Rincon MD [Primary Care Provider] - 08/30/23 3:20 pm Diet: Regular and Carb Consistent or DM2 Addtl Attending Provider Instructions: You were admitted to the hospital for likely bacterial pneumonia and viral respiratory infection. You were treated with cefepime and metronidazole, along with your home medications A discharge summary will be sent to your primary care physician to ensure continuity of care. Please bring this discharge summary with you to your next office appointment so that your provider can review it at that time. Follow-up appointments: We have requested a follow-up appointment with your primary care physician within one week of discharge. Please call their office if you do not hear from them. Keep all your follow-up appointments as already scheduled. If you cannot make an appointment, notify your provider. Medications: Your medication list has been reviewed and reconciled upon discharge to ensure accuracy and continuity of care. An updated list of all your medications is included with your hospital discharge paperwork. Please review this list closely, and make note of any changes. We sent a new medication called Augmentin to your pharmacy. Take Augmentin, (875-125 mg/1 tablet) 1 tablet, twice a day, for 8 days. Take your medications as instructed; do not skip a dose of your medicines. Make sure all of your doctors know every medicine you are taking (including opxt-mxi-ucebdcs medicines, vitamins, and supplements). Call your primary care provider before taking any new medicines (including elir-znt-hvohnfu medicines, vitamins, and supplements), because some of these may interact with your current medications, or may make your symptoms worse. Tell your primary care provider if you cannot afford your medications. CONTACT YOUR PRIMARY CARE PROVIDER if you experience any of the following: shortness of breath, cough, wheezing fevers, chills Difficulty following your treatment plan, or difficulty taking medications CALL 911 OR GO TO THE EMERGENCY DEPARTMENT if you experience any of the following: Sudden, severe abdominal pain or nausea/vomiting Severe chest pain, or chest pain that radiates (moves) to your jaw or arm Sudden, severe shortness of breath or difficulty breathing Thank you for allowing us to participate in your care Pending Studies at Discharge: No Stand-Alone Forms: My [facility], Smoking Cessation Medications and DC Order Prescriptions: New amoxicillin-pot clavulanate 875-125 mg tablet 1 tab PO BID Qty: 16 0RF Continued metformin 1,000 mg tablet 1,000 mg PO QAM Qty: 90 3RF levothyroxine [Synthroid] 150 mcg tablet 150 mcg PO QAM Qty: 90 1RF multivitamin [Daily Multi-Vitamin] Tablet 1 tab PO QAM naproxen sodium [Aleve] 220 mg Tablet 220 - 440 mg PO UD PRN (Reason: Pain) cholecalciferol (vitamin D3) [Vitamin D3] 50 mcg (2,000 unit) Tablet 50 mcg PO QAM Discharge Orders: Discharge Order (Routine); Ordered 08/22/23 Ordered By: Chon Rutherford Admission Data Admit Date/Time: 08/20/23 23:14 Attending Provider: Alexander Bertrand Admit Provider: Christine Singh Primary Care Provider: Alicia Rincon Other Providers: Lianna Chapman; Bhavana Thurman Other Interventions: Discharge Summary Assessment (RN) Last Done: 08/22/23 15:43 Supervising Physician Co-Signing Physician Notes ATTESTATION I also saw the patient and confirmed sneed portions of the history and exam. I agree with the impression and plan in the resident documentation, and as summarized below. or fluid collections palpated late this morning, the patient is in her room; at bedside. She is feeling much better. Just a very occasional cough, mostly when she uses her incentive spirometer. She had 1 fever yesterday early afternoon, but has gone the 20 or so hours since without recurrence. She is satting well on room air. EXAM Vital signs as noted pleasant and alert. No distress appreciated. Heart regular rate and rhythm; lungs are clear to my auscultation (+) bowel sounds; non tender abdomen DATA Micro Blood cultures from 08/20/2023 are negative 24 hours IMPRESSION & PLAN Suspect viral PNA secondary to human metapneumovirus + enterovirus, clinically improving She looks quite well today, afebrile, on room oxygen, and no problems taking p.o. medications With transition to PO Augmentin She has good support at home Carefully discussed follow-up as well as indications to be seen earlier.
[2023-08-22] MEDS: ONDANSETRON INJ 2 MG/ML 2 ML VIAL IV PRN (15:31)
== END 2023-08-22 16:39 | disposition home or self-care (01) ==
LOC: EDINP 18:47 → ED 18:47 → SUATTDRO 23:14 → 2W 23:39